=== PATIENT | female | born 1955 | race Caucasian/White ===

== ENCOUNTER 2021-04-06 21:48 | Emergency (ER) | payer OTHER ==
[2021-04-06] MEDS ORDERED: ACETAMINOPHEN 325 MG TABLET (FP) PO ONE (22:20)
[2021-04-06 22:23] VITALS: BP 155/98; PULSE 97; TEMP 98.5; BMI 30.2
[2021-04-06] MEDS ORDERED: ACETAMINOPHEN 325 MG TABLET (FP) ONE (22:24)
== END 2021-04-07 01:45 | disposition home or self-care (01) ==
LOC: JER 21:48
DX: M79.601 Pain in right arm (principal)
CPT/HCPCS: 73000-TC-RT-FY; 73060-TC-RT-FY; 73070-TC-RT-FY; 99285-25

== ENCOUNTER 2022-06-17 17:26 | Emergency (ER) | payer OTHER ==
[2022-06-17 18:13] VITALS: BP 164/94; PULSE 74; RESP 22; TEMP 98.5; BMI 29.9
[2022-06-17] MEDS ORDERED: ACETAMINOPHEN 1000 MG/100 ML BAG IVPB ONE (19:16)
[2022-06-17] MEDS ORDERED: ACETAMINOPHEN INJECTION 100 ML IVPB ONE (19:39)
[2022-06-17 19:55] LABS: BASO % 0.5 % (0-2.0); EOS % 1.2 % (0-4.5); HEMATOCRIT 39.2 % (32.4-45.2); HEMOGLOBIN 13.2 GM/dL (10.7-15.3); LYMPH % 15.3 % (8-40); MCH 27.8 pg (25.7-33.7); MCHC 33.8 g/dl (32.0-36.0); MEAN CELL VOLUME 82.2 fl (80-96); MEAN PLT VOLUME 9.1 fl (7.5-11.1); MONO % 6.8 % (3.8-10.2); NEUT % 76.2 % (42.8-82.8); PLATELET COUNT 281 10^3/uL (134-434); RBC 4.77 M/mm3 (3.60-5.2); RDW 16.1 % (11.6-15.6); WHITE BLOOD COUNT 9.3 K/mm3 (4.0-10.0)
[2022-06-17 20:34] LABS: BLOOD UREA NITROGEN 12.3 mg/dL (7-18); CALCIUM 8.7 mg/dL (8.5-10.1)
[2022-06-17 20:38] LABS: CREATININE 0.7 mg/dL (0.55-1.3)
[2022-06-17 20:39] LABS: BILIRUBIN,TOTAL 0.4 mg/dL (0.2-1); TOT PROT 7.2 g/dl (6.4-8.2)
== END 2022-06-18 00:54 | disposition left against medical advice (07) ==
LOC: JER 17:26
PROC: 3E033GC Introduction of Other Therapeutic Substance into Peripheral Vein, Percutaneous Approach (ICD-10-PCS; principal; 2022-06-17)
DX: G45.9 Transient cerebral ischemic attack, unspecified (principal)
CPT/HCPCS: 36415; 70496-TC; 70498-TC; 80053; 85025; 93005; 93010; 99285-25; Q9967